=== PATIENT | male | born 1985 | race Two or more races ===

== ENCOUNTER 2021-06-23 14:13 | Emergency (ER) | payer OTHER ==
[~2021-06-23] VITALS: Ht 172.7 cm; Wt 80.3 kg
[2021-06-23] MEDS ORDERED: OSEL75CA PO (16:57)
== END 2021-06-23 17:16 | disposition home or self-care (01) ==
LOC: ER 14:13
DX: J11.1 Influenza due to unidentified influenza virus with other respiratory manifestations (principal); B34.9 Viral infection, unspecified; Z20.822 Contact with and (suspected) exposure to COVID-19